=== PATIENT | female | born 1990 | race African-American/Black ===

== ENCOUNTER 2019-06-02 04:51 | Emergency (ER) | payer SELFPAY ==
[2019-06-02 05:59] LABS: Absolute Lymphocytes (CBC) 1.1 K/uL (0.7-4.9); Basophils % 0.5 % (0-1.3); Hematocrit 41.1 % (36.0-45.0); Lymphocytes % 11.3 % (15.3-44.8); MPV 8.7 fL (7.6-11.3); RBC Red Blood Cell Count 4.87 M/uL (3.86-4.86)
[2019-06-02] MEDS ORDERED: MORPHINE 2 MG/ML SYR ONE (06:26)
[2019-06-02] MEDS ORDERED: NA CHLORIDE 0.9% 1,000 ML ONE (06:26)
[2019-06-02] MEDS ORDERED: ONDANSETRON 4 MG/2 ML VIAL ONE (06:27)
[2019-06-02 07:07] LABS: ALT/SGPT 22 U/L (12-78); AST/SGOT 15 U/L (15-37); Albumin 4.3 g/dL (3.4-5.0); Alkaline Phosphatase 72 U/L (45-117); BUN Blood Urea Nitrogen 14 mg/dL (7-18); Bicarbonate 22 mmol/L (21-32); Bilirubin Direct 0.1 mg/dL (0-0.2); Bilirubin Total 0.4 mg/dL (0.2-1.0); Glucose Level 106 mg/dL (74-106); Lipase 147 U/L (73-393); Potassium 3.9 mmol/L (3.5-5.1); Protein, Total 8.3 g/dL (6.4-8.2); Sodium Level 137 mmol/L (136-145)
[2019-06-02 07:09] LABS: Blood Morphology Comment NOT SEEN (NOT SEEN); Platelet Estimate ADEQ; Urine White Blood Cell Casts OK
[2019-06-02] MEDS ORDERED: KETOROLAC 30 MG/ML INJ ONE (07:32)
--- NOTE | 2019-06-02 08:27 | ER ---
Nurse's Notes [facility] Name: Gabriela Jean-Baptiste Age: 29 yrs Sex: Female : 1990 Arrival Date: 06/02/2019 Time: 04:54 Bed 8 Private MD: Diagnosis: Abdominal tenderness;Other ovarian cysts;Pelvic and perineal pain Presentation: 06/02 05:08 Presenting complaint: Mother states: sudden onset of lower abd pain approx 0200 this am aa1 and vomited x 2. Transition of care: patient was not received from another setting of care. Onset of symptoms was June 02, 2019. Risk Assessment: Do you want to hurt yourself or someone else? Patient reports no desire to harm self or others. Initial Sepsis Screen: Does the patient meet any 2 criteria? HR > 90 bpm. Does the patient have a suspected source of infection? Yes: Acute abdominal pain. Care prior to arrival: None. 05:08 Method Of Arrival: Wheelchair aa1 05:08 Acuity: TUNG 3 aa1 Triage Assessment: 05:09 General: Appears in no apparent distress. uncomfortable, Behavior is restless. 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 - Coronavirus screen:: The patient has NOT traveled to [place] in the past 14 days. Proceed with normal triage process as indicated. - Social history:: Smoking status: Patient reports the use of cigarette tobacco products, smokes one-half pack cigarettes per day. - Family history:: not pertinent. - Ebola Screening: : No symptoms or risks identified at this time. Screenin:55 Abuse screen: Denies threats or abuse. Nutritional screening: No deficits noted. jd3 Tuberculosis screening: No symptoms or risk factors identified. Fall Risk IV access (20 points). Ambulatory Aid- None/Bed Rest/Nurse Assist (0 pts). Gait- Normal/Bed Rest/Wheelchair (0 pts) Mental Status- Oriented to own ability (0 pts). Total Kahn Fall Scale indicates No Risk (0-24 pts). Assessment: 05:00 General: Appears in no apparent distress. uncomfortable, Behavior is calm, cooperative, jd3 anxious, restless. Pain: Complains of pain in suprapubic area, right lower quadrant and left lower quadrant Quality of pain is described as sharp, tender. Neuro: Level of Consciousness is awake, alert, obeys commands, Oriented to person, place, time, situation. Cardiovascular: Capillary refill < 3 seconds Patient's skin is warm and dry. Respiratory: Airway is patent Respiratory effort is even, unlabored, Respiratory pattern is regular, symmetrical, Denies cough, shortness of breath. GI: Abdomen is round non-distended, Bowel sounds present X 4 quads. Abd is soft X 4 quads Abdomen is tender to palpation in suprapubic area, right lower quadrant and left lower quadrant Reports lower abdominal pain, Patient currently denies constipation, diarrhea, nausea, vomiting. : No signs and/or symptoms were reported regarding the genitourinary system. Denies burning with urination, discharge, inability to void, urinary frequency, urgency. EENT: No signs and/or symptoms were reported regarding the EENT system. Derm: Skin is intact, Skin is dry, Skin is normal, Skin temperature is warm. Musculoskeletal: Circulation, motion, and sensation intact. Range of motion: intact in all extremities. 06:15 Reassessment: Patient appears in no apparent distress at this time. No changes from jd3 previously documented assessment. Patient and/or family updated on plan of care and expected duration. Pain level reassessed. Patient is alert, oriented x 3, equal unlabored respirations, skin warm/dry/pink. 07:00 Reassessment: RECD REPORT FROM MARC STANFORD. 29YO BF P/W ABDOMINAL PAIN. ALL CURRENT bp STUDIES COMPLETED, RESULTS PENDING. 08:07 Reassessment: U/S COMPLETED, RESULTS PENDING. NO ACUTE S/S NOTED. bp 08:36 Reassessment: PT D/C HOME AMBULATORY WITH FAMILY, DX WITH OVARIAN CYST. bp Vital Signs: 05:09 BP 136 / 101; Pulse 100; Resp 20; Temp 97.3; Pulse Ox 100% on R/A; Weight 81.65 kg; aa1 Height 5 ft. 7 in. (170.18 cm); Pain 10/10; 06:53 BP 118 / 70; Pulse 88; Resp 18 S; Pulse Ox 100% on R/A; jd3 07:00 BP 116 / 70; Pulse 84; Resp 17; Pulse Ox 100% ; bp 08:07 BP 112 / 86; Pulse 78; Resp 16; Pulse Ox 100% ; bp 08:36 BP 104 / 66; Pulse 91; Resp 16; Temp 97.5; Pulse Ox 100% ; bp 05:09 Body Mass Index 28.19 (81.65 kg, 170.18 cm) aa1 ED Course: 04:54 Patient arrived in ED. es 04:58 Alan Adkins MD is Attending Physician. terrell 05:05 Cheko Lawson, RN is Primary Nurse. jd3 05:09 Triage completed. aa1 05:09 Patient placed in an exam room. aa1 06:24 Radiology exam delayed due to PATIENT CURRENTLY BEING MEDICATED. kw1 06:55 Patient has correct armband on for positive identification. Bed in low position. Call jd3 light in reach. Side rails up X 1. Adult w/ patient. 07:00 Inserted saline lock: 20 gauge in right wrist, using aseptic technique. bp 07:47 Maciej Edge PA is PHCP. jr8 07:59 Primary Nurse role handed off by Cheko Lawson, HIEN bp 07:59 Tho Mason, HIEN is Primary Nurse. bp 08:05 Ultrasound completed. Patient tolerated well. sg3 08:26 Steve Douglas MD is Referral Physician. jr8 08:36 No provider procedures requiring assistance completed. IV discontinued, intact, bp bleeding controlled, No redness/swelling at site. Pressure dressing applied. 09:18 CT Abd/Pelvis - IV Contrast Only In Process Unspecified. EDMS 09:34 US Transvaginal Study (Probe) In Process Unspecified. EDMS Administered Medications: 06:20 Drug: NS 0.9% 1000 ml Route: IV; Rate: 1 bolus; Site: right wrist; jd3 08:38 Follow up: IV Status: Completed infusion; IV Intake: 1000ml bp 06:20 Drug: morphine 2 mg Route: IVP; Site: right wrist; jd3 08:38 Follow up: Response: Pain is decreased bp 06:20 Drug: Zofran 4 mg Route: IVP; Site: right wrist; jd3 08:38 Follow up: Response: Nausea is decreased bp 07:20 Drug: TORadol 30 mg Route: IVP; Site: left antecubital; bp 08:37 Follow up: Response: Pain is decreased bp Intake: 08:38 IV: 1000ml; Total: 1000ml. bp Outcome: 08:26 Discharge ordered by MD. campos 08:37 Discharged to home ambulatory, with family. bp 08:37 Condition: stable 08:37 Discharge instructions given to patient, family, Instructed on discharge instructions, follow up and referral plans. medication usage, Demonstrated understanding of instructions, follow-up care, medications, Prescriptions given X 2. 08:38 Patient left the ED. bp Signatures: Dispatcher [employer] EDTrang Price RN RN aa1 Alan Adkins MD MD cha Salyer, Edna es Roszak, Josh, PA PA jr8 Davies, Jonathon, RN RN jTho Almodovar RN RN bp Cathleen Zamora Patti Valadez 3
--- NOTE | 2019-06-02 08:28 | EDPHYS ---
Physician Documentation [facility] Name: Gabriela Jean-Baptiste Age: 29 yrs Sex: Female : 1990 Arrival Date: 06/02/2019 Time: 04:54 Bed 8 Private MD: ED Physician Alan Adkins HPI: 06/02 05:20 This 29 yrs old Black Female presents to ER via Wheelchair with complaints of Abdominal terrell Pain. 05:20 The patient presents with abdominal distention in the lower abdomen. Onset: The terrell symptoms/episode began/occurred today. The symptoms do not radiate. Associated signs and symptoms: Pertinent positives: nausea. The symptoms are described as constant, crampy. Modifying factors: The symptoms are alleviated by nothing, remaining still, the symptoms are aggravated by movement. Severity of pain: At its worst the pain was moderate severe in the emergency department the pain is unchanged. The patient has not experienced similar symptoms in the past. 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 - Coronavirus screen:: The patient has NOT traveled to [place] in the past 14 days. Proceed with normal triage process as indicated. - Social history:: Smoking status: Patient reports the use of cigarette tobacco products, smokes one-half pack cigarettes per day. - Family history:: not pertinent. - Ebola Screening: : No symptoms or risks identified at this time. ROS: 05:20 Constitutional: Negative for fever, chills, and weight loss, Eyes: Negative for injury, terrell pain, redness, and discharge, ENT: Negative for injury, pain, and discharge, Neck: Negative for injury, pain, and swelling, Cardiovascular: Negative for chest pain, palpitations, and edema, Respiratory: Negative for shortness of breath, cough, wheezing, and pleuritic chest pain, Back: Negative for injury and pain, : Negative for injury, bleeding, discharge, and swelling, MS/Extremity: Negative for injury and deformity, Skin: Negative for injury, rash, and discoloration, Neuro: Negative for headache, weakness, numbness, tingling, and seizure, Psych: Negative for depression, anxiety, suicide ideation, homicidal ideation, and hallucinations, Allergy/Immunology: Negative for hives, rash, and allergies, Endocrine: Negative for neck swelling, polydipsia, polyuria, polyphagia, and marked weight changes, Hematologic/Lymphatic: Negative for swollen nodes, abnormal bleeding, and unusual bruising. 05:20 Abdomen/GI: Positive for abdominal pain, of the right upper quadrant, left upper quadrant, right lower quadrant and left lower quadrant. Exam: 05:20 Constitutional: This is a well developed, well nourished patient who is awake, alert, terrell and in no acute distress. Head/Face: Normocephalic, atraumatic. Eyes: Pupils equal round and reactive to light, extra-ocular motions intact. Lids and lashes normal. Conjunctiva and sclera are non-icteric and not injected. Cornea within normal limits. Periorbital areas with no swelling, redness, or edema. ENT: Nares patent. No nasal discharge, no septal abnormalities noted. Tympanic membranes are normal and external auditory canals are clear. Oropharynx with no redness, swelling, or masses, exudates, or evidence of obstruction, uvula midline. Mucous membranes moist. Neck: Trachea midline, no thyromegaly or masses palpated, and no cervical lymphadenopathy. Supple, full range of motion without nuchal rigidity, or vertebral point tenderness. No Meningismus. Chest/axilla: Normal chest wall appearance and motion. Nontender with no deformity. No lesions are appreciated. Cardiovascular: Regular rate and rhythm with a normal S1 and S2. No gallops, murmurs, or rubs. Normal PMI, no JVD. No pulse deficits. Respiratory: Lungs have equal breath sounds bilaterally, clear to auscultation and percussion. No rales, rhonchi or wheezes noted. No increased work of breathing, no retractions or nasal flaring. Back: No spinal tenderness. No costovertebral tenderness. Full range of motion. Skin: Warm, dry with normal turgor. Normal color with no rashes, no lesions, and no evidence of cellulitis. MS/ Extremity: Pulses equal, no cyanosis. Neurovascular intact. Full, normal range of motion. Neuro: Awake and alert, GCS 15, oriented to person, place, time, and situation. Cranial nerves II-XII grossly intact. Motor strength 5/5 in all extremities. Sensory grossly intact. Cerebellar exam normal. Normal gait. Psych: Awake, alert, with orientation to person, place and time. Behavior, mood, and affect are within normal limits. 05:20 Abdomen/GI: Inspection: distension, Bowel sounds: normal, Palpation: moderate abdominal tenderness, in all quadrants, Liver: no appreciated palpable abnormalities, Hernia: not appreciated. Vital Signs: 05:09 BP 136 / 101; Pulse 100; Resp 20; Temp 97.3; Pulse Ox 100% on R/A; Weight 81.65 kg; aa1 Height 5 ft. 7 in. (170.18 cm); Pain 10/10; 06:53 BP 118 / 70; Pulse 88; Resp 18 S; Pulse Ox 100% on R/A; jd3 07:00 BP 116 / 70; Pulse 84; Resp 17; Pulse Ox 100% ; bp 08:07 BP 112 / 86; Pulse 78; Resp 16; Pulse Ox 100% ; bp 08:36 BP 104 / 66; Pulse 91; Resp 16; Temp 97.5; Pulse Ox 100% ; bp 05:09 Body Mass Index 28.19 (81.65 kg, 170.18 cm) aa1 MDM: 04:59 Patient medically screened. [facility] 05:22 Data reviewed: vital signs, nurses notes, lab test result(s). [facility] 07:59 Data reviewed: radiologic studies, CT scan, ultrasound. Data interpreted: Pulse jr8 oximetry: on room air is 100 %. Interpretation: normal. Counseling: I had a detailed discussion with the patient and/or guardian regarding: the historical points, exam findings, and any diagnostic results supporting the discharge/admit diagnosis, lab results, radiology results. 08:26 Special discussion: Based on the patient's Hx, exam, and Dx evaluation, there is no jr8 indication for emergent surgery or inpatient Tx. It is understood by the patient/guardian that if the Sx's persist or worsen they need to return immediately for re-evaluation. 06/02 05:14 Order name: Basic Metabolic Panel [facility] 06/02 05:14 Order name: CBC with Diff [facility] 06/02 05:14 Order name: Creatinine for Radiology [facility] 06/02 05:14 Order name: Hepatic Function [facility] 06/02 05:14 Order name: Lipase [facility] 06/02 05:35 Order name: Test, Serum [facility] 06/02 06:01 Order name: CBC with Automated Diff; Complete Time: 07:36 EDVT 06/02 06:15 Order name: Test Serum, Qualitat; Complete Time: 06:18 EDVT 06/02 06:21 Order name: Creatinine (Radiology Only); Complete Time: 06:50 EDVT 06/02 06:34 Order name: Urine Dipstick--Ancillary (enter results) [facility] 06/02 06:34 Order name: Urine --Ancillary (enter results) [facility] 06/02 07:09 Order name: Basic Metabolic Panel; Complete Time: 07:36 EDMS 06/02 07:09 Order name: Liver (Hepatic) Function; Complete Time: 07:36 [facility] 06/02 07:09 Order name: Lipase; Complete Time: 07:36 EDVT 06/02 05:14 Order name: IV Saline Lock; Complete Time: 06:19 [facility] 06/02 05:14 Order name: Labs collected and sent; Complete Time: 06:19 [facility] 06/02 05:14 Order name: Urine Dipstick-Ancillary (obtain specimen); Complete Time: 06:19 [facility] 06/02 05:14 Order name: Urine Test (obtain specimen); Complete Time: 06:19 [facility] 06/02 06:19 Order name: CT Abd/Pelvis - IV Contrast Only [facility] 06/02 07:08 Order name: US Transvaginal Study (Probe); Complete Time: 17:03 [facility] 06/02 07:10 Order name: CBC Smear Scan; Complete Time: 07:36 EDVT 06/02 08:29 Order name: Urine --Ancillary; Complete Time: 17:03 [facility] 06/02 08:29 Order name: Urine Dipstick-Ancillary; Complete Time: 17:03 EDMS Administered Medications: 06:20 Drug: NS 0.9% 1000 ml Route: IV; Rate: 1 bolus; Site: right wrist; jd3 08:38 Follow up: IV Status: Completed infusion; IV Intake: 1000ml bp 06:20 Drug: morphine 2 mg Route: IVP; Site: right wrist; jd3 08:38 Follow up: Response: Pain is decreased bp 06:20 Drug: Zofran 4 mg Route: IVP; Site: right wrist; jd3 08:38 Follow up: Response: Nausea is decreased bp 07:20 Drug: TORadol 30 mg Route: IVP; Site: left antecubital; bp 08:37 Follow up: Response: Pain is decreased bp Disposition: 06/03 08:13 Co-signature as Attending Physician, Alan Adkins MD I agree with the assessment and terrell plan of care. Disposition: 06/02/19 08:26 Discharged to Home. Impression: Abdominal tenderness, Other ovarian cysts, Pelvic and perineal pain. - Condition is Stable. - Discharge Instructions: Abdominal Pain, Adult, Ovarian Cyst, Pelvic Pain, Female, Pelvic Pain, Female, [id number], Abdominal Pain, Adult, [id number], Ovarian Cyst, [id number]. - Prescriptions for Ibuprofen 600 mg Oral Tablet - take 1 tablet by ORAL route every 6 hours As needed take with food; 20 tablet. Tylenol- Codeine #3 300-30 mg Oral Tablet - take 2 tablet by ORAL route every 6 hours As needed; 30 tablet. - Work release form, Medication Reconciliation Form, Thank You Letter, Antibiotic Education, Prescription Opioid Use form. - Follow up: Private Physician; When: 2 - 3 days; Reason: Recheck today's complaints, Continuance of care, Re-evaluation by your physician. Follow up: Steve Douglas; When: 2 - 3 days; Reason: Recheck today's complaints, Continuance of care, Re-evaluation by your physician. - Problem is new. - Symptoms have improved. Signatures: Dispatcher [employer] EDTrang Price RN RN aa1 Alan Adkins MD MD cha Roszak, Josh, PA PA jr8 Cheko Lawson RN RN jd3 Peltier, Brian, RN RN bp Corrections: (The following items were deleted from the chart) 06/02 08:38 08:26 06/02/2019 08:26 Discharged to Home. Impression: Abdominal tenderness; Other bp ovarian cysts; Pelvic and perineal pain. Condition is Stable. Discharge Instructions: Abdominal Pain, Adult, Ovarian Cyst, Pelvic Pain, Female, Pelvic Pain, Female, [id number], Abdominal Pain, Adult, [id number]-[id number], Ovarian Cyst, [id number]. Prescriptions for Ibuprofen 600 mg Oral Tablet - take 1 tablet by ORAL route every 6 hours As needed take with food; 20 tablet, Tylenol-Codeine #3 300-30 mg Oral Tablet - take 2 tablet by ORAL route every 6 hours As needed; 30 tablet. and Forms are Medication Reconciliation Form, Thank You Letter, Antibiotic Education, Prescription Opioid Use. Follow up: Private Physician; When: 2 - 3 days; Reason: Recheck today's complaints, Continuance of care, Re-evaluation by your physician. Follow up: Steve Douglas; When: 2 - 3 days; Reason: Recheck today's complaints, Continuance of care, Re-evaluation by your physician. Problem is new. Symptoms have improved. jr8
[2019-06-02 08:29] LABS: Urine Blood TRACE (NEG); Urine Glucose NEGATIVE (NEG); Urine Protein NEGATIVE (NEG); Urine Specific Gravity 1.025 (1.005-1.030)
[2019-06-02 08:49] VITALS: O2SAT 100
[2019-06-02 08:55] VITALS: BP 104/66; TEMP 97.5
--- NOTE | 2019-06-02 10:23 | RAD REPORT ---
EXAM DESCRIPTION: US - Transvaginal Study Probe - 06/02/2019 8:08 am CLINICAL HISTORY: Pelvic pain COMPARISON: CT June 02, 2019 FINDINGS: The uterus measures 8 x 3 x 4cm. A fibroid is not seen. Endometrial stripe measures 8 mill imeters The left ovary is enlarged measuring 6.9 centimeters. 3.6 centimeter complex left ovarian cyst. 2.1 c entimeter simple left ovarian cyst. Blood flow is present within the left ovary. Right ovary is normal in size and echotexture. The right and left adnexal unremarkable. A small amount of free fluid IMPRESSION: Enlargement of the left ovary. 3.6 centimeter complex left ovarian cyst likely benign. Followup ultrasound in 6 weeks recommended to assess stability/ resolution
--- NOTE | 2019-06-03 11:04 | RAD REPORT ---
EXAM DESCRIPTION: CT - Abdomen Pelvis W Contrast - 06/02/2019 7:05 am CLINICAL HISTORY: ABD PAIN COMPARISON: None. TECHNIQUE: CT ABDOMEN PELVIS WITH IV CONTRAST on 06/02/2019 6:19 AM TOOL CHASER This exam was performed according to our departmental dose-optimization program, which includes autom ated exposure control, adjustment of the mA and/or kV according to patient size and/or use of iterati ve reconstruction technique. FINDINGS: Lower lungs are clear. Abdomen: There is trace perihepatic ascites. There is no biliary dilatation. All is in the MA: Gallbl adder is normally distended. The pancreas and spleen are normal in appearance. The adrenal glands and kidneys are unremarkable. Abdominal aorta is normal in course and caliber without aneurysm. There is no free air. There is no r etroperitoneal adenopathy. Pelvis: There is no bowel obstruction. Urinary bladder is unremarkable. There is moderate free pelvic fluid. Uterus is normal in size. This may relate to the ovaries. Appendix is normal. There is a vagu e collection of fluid in the dependent aspect of the pelvis. Skeleton: There are no acute osseous findings. No suspicious bony lesions. IMPRESSION: Free pelvic fluid along with a collection of fluid or cyst involving the posterior pelvi s. Recommend pelvic ultrasound for better characterization. Electronically signed by: Shlomo Patiño MD 06/02/2019 6:58 AM TOOL CHASER Due to temporary technical issues with the PACS/Fluency reporting system, reports are being signed by the in house radiologist as a courtesy to ensure prompt reporting. The interpreting radiologist is f ully responsible for the content of the report.
== END 2019-06-02 08:38 | disposition home or self-care (01) ==
LOC: ER 04:51
DX: N83.299 Other ovarian cyst, unspecified side (principal); R10.2 Pelvic and perineal pain; F17.210 Nicotine dependence, cigarettes, uncomplicated
CPT/HCPCS: 36415; 74177; 76830; 80048; 80076; 81003; 81025; 83690; 84703; 85025; 96361; 96374; 96375; 99284; J2270; J2405; J7030; Q9967